=== PATIENT | male | born 1960 | race Caucasian/White ===

== ENCOUNTER 2016-12-08 18:32 | Emergency (ER) | payer OTHER ==
[~2016-12-08] VITALS: Ht 170.2 cm; Wt 73.0 kg
[2016-12-08] VITALS (7 sets, daily range): BP systolic 99–121; BP diastolic 56–79
[2016-12-08] MEDS ORDERED: LISI-556 PO (18:46)
[2016-12-08] MEDS ORDERED: PHEN15CA67 PO (18:46)
[2016-12-08] MEDS ORDERED: ATOR10TA66 PO (18:46)
[2016-12-08] MEDS ORDERED: NS IV 1000 ML 1,000 ML IV ONE (18:47)
[2016-12-08 18:56] LABS: BASOPHILS % (AUTO) 0 % (0-10); EOSINOPHILS % (AUTO) 0 % (0-10); LYMPHOCYTES # (AUTO) 0.8 X 10^3 (1.0-4.0); LYMPHOCYTES % (AUTO) 5 % (12-44); MEAN CORPUSCULAR HEMOGLOBIN 33 PG (25-34); MEAN CORPUSCULAR HGB CONC 35 G/DL (32-36); MEAN CORPUSCULAR VOLUME 95 FL (80-99); MEAN PLATELET VOLUME 8.6 FL (7.4-10.4); MONOCYTES # (AUTO) 2.9 X 10^3 (0.0-1.0); MONOCYTES % (AUTO) 19 % (0-12); NEUTROPHILS # (AUTO) 11.7 X 10^3 (1.8-7.8); NEUTROPHILS % (AUTO) 76 % (42-75); PLATELET COUNT 245 10^3/uL (130-400); RED BLOOD COUNT 4.42 10^6/uL (4.35-5.85); RED CELL DISTRIBUTION WIDTH 12.7 % (10.0-14.5); WHITE BLOOD COUNT 15.5 10^3/uL (4.3-11.0)
--- NOTE | 2016-12-08 19:00 | Diagnostic Imaging Report ---
Indication: Chest tightness for two days. Discussion: Single portable upright view of the chest was obtained, no comparison. No focal consolidation, pleural fluid or pneumothorax. Normal heart size. No osseous abnormality. Impression: Negative portable chest. Dictated by: Dictated on workstation # [id number]
--- NOTE | 2016-12-08 19:03 | ED Chest Pain ---
General Chief Complaint: Chest Pain Stated Complaint: CP Nursing Triage Note: Pt to ED room 8 via [facility] from [facility]. Pt reports he had been experiencing chest tightness for approx 2 days but woke up feeling better this morning. Pt reports he was walking through [place] airport this morning when he suddenly became diaphoretic and SOA and began experiencing CP. Pt denies SOA or CP at this time. Nursing Sepsis Screen: No Definite Risk Source: patient, EMS Exam Limitations: no limitations History of Present Illness Time seen by provider: 18:32 Initial Comments Patient is here from [place] where he lives. He does a lot of traveling for his job. This morning he noted that he had chest tightness while walking through the airport [place]. I did get a little better with rest but he's had some chest tightness and right arm tingling since. He also notes some upper chest pressure. Ultimately presented at [facility] urgent care for evaluation. They were concerned because he had elevated heart rate as well as the complaints of chest pain and sent him here. Patient denies nausea or vomiting. Did have sweating with his shortness of air during the initial episode. Patient did receive ASA 324 mg at outside facility. 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 Associated Symptoms: back pain diaphoresisNo nausea/vomiting, shortness of breath Allergies and Home Medications Allergies Coded Allergies: No Known Drug Allergies (Unverified , 12/08/16) Home Medications Atorvastatin Calcium 10 Mg Tablet Unknown Dose PO (Reported) Lisinopril 5 Mg Tablet Unknown Dose PO DAILY (Reported) Phentermine HCl 15 Mg Capsule Unknown Dose PO (Reported) Review of Systems Constitutional: see HPINo chills, diaphoresisNo fever EENTM: No Symptoms Reported Respiratory: See HPI SOA With Exertion Cardiovascular: Chest PainDenies Lightheadedness Genitourinary: No Symptoms Reported Musculoskeletal: no symptoms reported Skin: no symptoms reported Psychiatric/Neurological: No Symptoms Reported Endocrine: No Symptoms Reported Hematologic/Lymphatic: No Symptoms Reported All Other Systems Reviewed Negative Unless Noted: Yes Past Kqdsskx-Afcjsz-Vkpuhz Hx Patient Social History Alcohol Use: Regular Use Recreational Drug Use: No Type Used: Electronic/Vapor Recent Foreign Travel: No Contact w/Someone Who Travel: No Recent Infectious Disease Expo: No Recent Hopitalizations: No Seasonal Allergies Seasonal Allergies: No Surgeries HX Surgeries: Yes Surgeries: Appendectomy Respiratory Hx Respiratory Disorders: No Cardiovascular Hx Cardiac Disorders: No Neurological Hx Neurological Disorders: No Reproductive System Hx Reproductive Disorders: No Genitourinary Hx Genitourinary Disorders: No Gastrointestinal Hx Gastrointestinal Disorders: No Musculoskeletal Hx Musculoskeletal Disorders: No Endocrine Hx Endocrine Disorders: No HEENT HX ENT Disorders: No Cancer Hx Cancer: No Psychosocial Hx Psychiatric Problems: No Integumentary HX Skin/Integumentary Disorder: No Blood Transfusions Hx Blood Disorders: No Reviewed Nursing Assessment Reviewed/Agree w Nursing PMH: Yes Family Medical History Significant Family History: Cancer, CAD Over 55 Years Old Physical Exam Vital Signs Vital Sign - Last 12Hours Capillary Refill : Less Than 3 Seconds General Appearance: No Apparent Distress WD/WN HEENT: PERRL/EOMI Pharynx Normal Neck: Non Tender Supple Respiratory: Lungs Clear Normal Breath Sounds Cardiovascular: Regular Rate, Rhythm No Murmur Gastrointestinal: Non Tender Soft Extremity: Normal Inspection Normal Range of Motion Non Tender No Calf Tenderness Neurologic/Psychiatric: Alert Oriented x3 Skin: Normal Color Warm/Dry Focused Exam Lactic Acid Level Laboratory Tests Test 12/08/16 18:35 12/08/16 20:42 Alanine Aminotransferase (ALT/SGPT) 96U/L (0-55) H Albumin 4.5G/DL (3.2-4.5) Alkaline Phosphatase 82U/L (40-136) Amylase Level 33U/L (25-125) Anion Gap 14MMOL/L (5-14) Aspartate Amino Transf (AST/SGOT) 39U/L (5-34) H BUN/Creatinine Ratio 8 Blood Urea Nitrogen 6MG/DL (7-18) L Calcium Level 9.8MG/DL (8.5-10.1) Carbon Dioxide Level 24MMOL/L (21-32) Chloride Level 93MMOL/L (98-107) L Creatinine 0.79MG/DL (0.60-1.30) Estimat Glomerular Filtration Rate > 60 Glucose Level 114MG/DL (70-105) H Lipase 26U/L (8-78) Magnesium Level 2.2MG/DL (1.8-2.4) Myoglobin 36.5NG/ML (10.0-92.0) Potassium Level 3.9MMOL/L (3.6-5.0) Sodium Level 131MMOL/L (135-145) L Total Bilirubin 1.2MG/DL (0.1-1.0) H Total Protein 7.3G/DL (6.4-8.2) Troponin I < 0.30NG/ML (<0.30) < 0.30NG/ML (<0.30) Progress/Results/Core Measures Results/Orders Lab Results Laboratory Tests Test 12/08/16 18:35 12/08/16 20:42 Range/Units Activated Partial Thromboplast Time 30 24-35 SEC Alanine Aminotransferase (ALT/SGPT) 96 H 0-55 U/L Albumin 4.5 3.2-4.5 G/DL Alkaline Phosphatase 82 40-136 U/L Amylase Level 33 25-125 U/L Anion Gap 14 5-14 MMOL/L Aspartate Amino Transf (AST/SGOT) 39 H 5-34 U/L BUN/Creatinine Ratio 8 Band Neutrophils 1 % Basophils # (Auto) 0.0 0.0-0.1 10^3/uL Basophils % (Manual) 0 % Basophils (%) (Auto) 0 0-10 % Blood Morphology Comment NORMAL Blood Urea Nitrogen 6 L 7-18 MG/DL Calcium Level 9.8 8.5-10.1 MG/DL Carbon Dioxide Level 24 21-32 MMOL/L Chloride Level 93 L 98-107 MMOL/L Creatinine 0.79 0.60-1.30 MG/DL D-Dimer 0.60 H 0.00-0.49 UG/ML Eosinophils # (Auto) 0.0 0.0-0.3 10^3/uL Eosinophils % (Manual) 0 % Eosinophils (%) (Auto) 0 0-10 % Estimat Glomerular Filtration Rate > 60 Glucose Level 114 H 70-105 MG/DL Hematocrit 42 40-54 % Hemoglobin 14.6 13.3-17.7 G/DL INR Comment 1.1 0.8-1.4 Lipase 26 8-78 U/L Lymphocytes # (Auto) 0.8 L 1.0-4.0 X 10^3 Lymphocytes % (Manual) 10 % Lymphocytes (%) (Auto) 5 L 12-44 % Magnesium Level 2.2 1.8-2.4 MG/DL Mean Corpuscular Hemoglobin 33 25-34 PG Mean Corpuscular Hemoglobin Concent 35 32-36 G/DL Mean Corpuscular Volume 95 80-99 FL Mean Platelet Volume 8.6 7.4-10.4 FL Monocytes # (Auto) 2.9 H 0.0-1.0 X 10^3 Monocytes % (Manual) 20 % Monocytes (%) (Auto) 19 H 0-12 % Myoglobin 36.5 10.0-92.0 NG/ML Neutrophils # (Auto) 11.7 H 1.8-7.8 X 10^3 Neutrophils % (Manual) 69 % Neutrophils (%) (Auto) 76 H 42-75 % Platelet Count 245 130-400 10^3/uL Potassium Level 3.9 3.6-5.0 MMOL/L Prothrombin Time 13.4 12.2-14.7 SEC Red Blood Count 4.42 4.35-5.85 10^6/uL Red Cell Distribution Width 12.7 10.0-14.5 % Sodium Level 131 L 135-145 MMOL/L Total Bilirubin 1.2 H 0.1-1.0 MG/DL Total Protein 7.3 6.4-8.2 G/DL Troponin I < 0.30 < 0.30 <0.30 NG/ML White Blood Count 15.5 H 4.3-11.0 10^3/uL My Orders Orders-SHAWNEEMARGA ARORA MD Cbc With Automated Diff (12/08/16 18:47) Magnesium (12/08/16 18:47) Chest 1 View, Ap/Pa Only (12/08/16 18:47) Ekg Tracing (12/08/16 18:47) Cardiac Profile 1 (12/08/16 18:47) Comprehensive Metabolic Panel (12/08/16 18:47) Myoglobin Serum (12/08/16 18:47) Protime With Inr (12/08/16 18:47) Partial Thromboplastin Time (12/08/16 18:47) O2 (12/08/16 18:47) Monitor-Rhythm Ecg Trace Only (12/08/16 18:47) Lipid Panel (12/09/16 06:00) Saline Lock/Iv-Start (12/08/16 18:47) Lipase (12/08/16 18:47) Amylase (12/08/16 18:47) Fibrin Degradation Products (12/08/16 18:47) Ns Iv 1000 Ml (Sodium Chloride 0.9%) (12/08/16 18:47) Manual Differential (12/08/16 18:35) Ct Angio Chest W (12/08/16 19:46) Iohexol Injection (Omnipaque 350 Mg/Ml 1 (12/08/16 20:15) Ns (Ivpb) (Sodium Chloride 0.9% Ivpb Bag (12/08/16 20:15) Ekg Tracing (12/08/16 20:36) Troponin I (12/08/16 20:36) Levaquin 500mg Po (12/08/16 21:43) Medications Given in ED Current Medications Medications Dose Ordered Sig/Gabrielle Route Start Time Stop Time Status Last Admin Dose Admin Iohexol 150 ml ONCE ONCE IV 12/08/16 20:15 12/08/16 20:16 DC 12/08/16 20:05 125 ML Sodium Chloride 100 ml ONCE ONCE IV 12/08/16 20:15 12/08/16 20:16 DC 12/08/16 20:05 80 ML Sodium Chloride 1,000 ml @ 0 mls/hr Q0M ONCE IV 12/08/16 18:47 12/08/16 18:49 DC 12/08/16 18:55 999 MLS/HR Vital Signs/I&O Vital Sign - Last 12Hours 12/08/16 12/08/16 12/08/16 12/08/16 18:35 18:35 18:39 18:45 Temp 98.2 Pulse 118 105 Resp 20 20 B/P 130/92 117/75 Pulse Ox 98 98 O2 Delivery Nasal Cannula Nasal Cannula Nasal Cannula Nasal Cannula O2 Flow Rate 2 2 2 2 12/08/16 12/08/16 12/08/16 12/08/16 18:55 19:15 19:45 20:30 Pulse 104 100 100 Resp 18 18 18 B/P 102/79 113/56 121/78 Pulse Ox 100 100 99 99 O2 Delivery Room Air Room Air Room Air Room Air Blood Pressure Mean: 105 Progress Note : Progress Note Seen and evaluated. IV at outside facility. Labs, EKG and chest x-ray ordered. Normal saline 1 L bolus. Monitor patient. 1944: D-dimer elevated. CT angiogram chest ordered. Monitor patient. 2039: No acute findings of pulmonary embolism but there is question of groundglass opacity in the right upper lobe that could be infiltrate. We will recheck troponin and EKG. Patient is overall doing much better. He was instructed to stop phentermine. He has appointment with his doctor scheduled next Tuesday. If enzymes are negative and there is no EKG changes persisting, we will discharge home to have follow-up back in [place] and initiate antibiotic therapy for possible pneumonia. Patient was in agreement and is comfortable with that plan. 2134: I did discuss the case and findings with Dr. Baptiste. He would recommend admission and observation if patient is amiable. If patient is not then close follow-up as discussed would be appropriate. 2144: I have discussed all the findings and concerns with the patient as well as offered admission. Patient would like to avoid admission if possible. We discussed in depth the return precautions and the need for follow-up. Patient states that he will definitely follow up with his DrCheryle on Tuesday and would return for any concerns. He is staying at the [facility]. He has friends here with him who will also help keep an eye on him. Levaquin 500 mg by mouth given. We will continue this for one week for the question of pneumonia. Discharged home with return precautions. Patient verbalize understanding instructions and agreement with plan. He is currently pain-free. ECG Initial ECG Impression Date: Dec 08, 2016 Initial ECG Impression Time: 18:39 Initial ECG Rate: 111 Initial ECG Rhythm: S.Tach Comment Sinus tachycardia with normal axis. Appears to have some global ST elevation that is mild which may represent pericarditis. No evidence of ST elevation [place]. No previous available for comparison from here but is similar to EKG done earlier today at outside facility. Interpreted by me. EKG : EKG Time: 20:47 Rate: 103 Rhythm: S.Tach Comment Sinus tachycardia with continued question of global mild ST elevation consistent with pericarditis. Patient does have history of hypertension and is on phentermine currently. Unchanged from previous. No evidence of ST elevation [place]. Interpreted by me. Normal axis noted. Diagnostic Imaging Diagonstic Imaging: Xray Plain Films/CT/US/NM/MRI: chest Comments VIA [facility], [facility]. [place], [place] NAME: GINETTE BRENNER [facility] REC#: [id number] PT STATUS: REG ER : 1960 PHYSICIAN: MARGA RUANO MD ADMIT DATE: 12/08/16/ER Draft Date of Exam:12/08/16 CHEST 1 VIEW, AP/PA ONLY Indication: Chest tightness for two days. Discussion: Single portable upright view of the chest was obtained, no comparison. No focal consolidation, pleural fluid or pneumothorax. Normal heart size. No osseous abnormality. Impression: Negative portable chest. Dictated on workstation # [id number] Dict: 12/08/168 Trans: 12/08/161899 [facility] [id number] Interpreted by: BRITT LOPEZ MD Electronically signed by: Beck Imaging: CT Plain Films/CT/US/NM/MRI: chest Comments VIA [facility], [place] NAME: GINETTE BRENNER [facility] REC#: [id number] PT STATUS: REG ER : 1960 PHYSICIAN: MARGA RUANO MD ADMIT DATE: 12/08/16/ER Draft Date of Exam:12/08/16 CT ANGIO CHEST W Procedure: CT angiography of the chest with contrast. Technique: Multiple contiguous axial images were obtained through the chest after uneventful bolus administration of intravenous contrast. Reconstructed CTA MIP acquisitions were also performed. Indication: Chest tightness for two days. Comparison: None. Discussion: No pulmonary embolus is identified. The thoracic aorta is normal in caliber and configuration. The thoracic aorta is somewhat tortuous in its course, likely due to underlying long-standing arterial hypertension. No mediastinal, hilar or axillary adenopathy. Normal heart size. No pleural or pericardial fluid. Subsegmental atelectasis present within the bilateral lung bases. Early changes of emphysema are noted. Subtle focus of groundglass opacity within the base of the right upper lobe is nonspecific and could represent atelectasis or pneumonia. Antecedent granulomatous disease is noted, benign. The visualized upper abdomen is unremarkable. No osseous abnormality identified. Impression: 1. No pulmonary embolus identified. 2. Small subtle focus of groundglass opacity within the base of the right upper lobe is nonspecific and could be seen with atelectasis and/or early pneumonia. Dictated on workstation # [id number] Dict: 12/08/162011 Trans: 12/08/162016 E [id number] Interpreted by: BRITT LOPEZ MD Electronically signed by: Departure Impression Impression: Primary Impression: Chest pain Qualified Code: R07.9 - Chest pain, unspecified Additional Impression: Right upper lobe pneumonia Qualified Code: J18.1 - Lobar pneumonia, unspecified organism Disposition: ADMITTED INPATIENT Condition: Stable Departure-Patient Inst. Decision time for Depature: 21:48 Referrals: NO,LOCAL PHYSICIAN (PCP/Family) Primary Care Physician Patient Instructions: Chest Pain (DC), Community-Acquired Pneumonia, Adult (DC) , Pericarditis, Adult (DC) Add. Discharge Instructions: All discharge instructions reviewed with patient and/or family. Voiced understanding. Take medications as directed. Drink plenty of fluids. Avoid things such as alcohol or other things that may irritate your stomach. It is very important that he keep your follow-up with your doctor on Tuesday as scheduled. It is also very important that you return if you have any concerns such as chest pain , breathing problems, sweating, weakness, vomiting or any other concerns as needed. Scripts Levofloxacin 500 Mg [id number] Mg PO DAILY #6 TAB Ref 0 Prov:MARGA RUANO MD 12/08/16 MARGA RUANO MD Dec 08, 2016 19:02
[2016-12-08 19:08] LABS: INR 1.1 (0.8-1.4); PROTHROMBIN TIME PATIENT 13.4 SEC (12.2-14.7)
[2016-12-08 19:14] LABS: ALANINE AMINOTRANSFERASE 96 U/L (0-55); ALBUMIN 4.5 G/DL (3.2-4.5); AMYLASE 33 U/L (25-125); ANION GAP 14 MMOL/L (5-14); ASPARTATE AMINO TRANSFERASE 39 U/L (5-34); BILIRUBIN,TOTAL 1.2 MG/DL (0.1-1.0); BLOOD UREA NITROGEN 6 MG/DL (7-18); BUN/CREATININE RATIO 8; CALCIUM 9.8 MG/DL (8.5-10.1); CARBON DIOXIDE 24 MMOL/L (21-32); CHLORIDE 93 MMOL/L (98-107); CREATININE SERUM 0.79 MG/DL (0.60-1.30); GFR ESTIMATED > 60; GLUCOSE 114 MG/DL (70-105); LIPASE 26 U/L (8-78); MAGNESIUM 2.2 MG/DL (1.8-2.4); POTASSIUM 3.9 MMOL/L (3.6-5.0); SODIUM 131 MMOL/L (135-145); TOTAL PROTEIN 7.3 G/DL (6.4-8.2)
[2016-12-08 19:20] LABS: MYOGLOBIN SERUM 36.5 NG/ML (10.0-92.0)
[2016-12-08 19:28] LABS: BAND NEUTROPHILS 1 %; BASOPHILS % (MANUAL) 0 %; EOSINOPHILS % (MANUAL) 0 %; LYMPHOCYTES % (MANUAL) 10 %; NEUTROPHILS % (MANUAL) 69 %
[2016-12-08] MEDS ORDERED: NS 100 ML (IVPB) BAG IV ONE (20:15)
[2016-12-08] MEDS ORDERED: IOHEXOL 350 MG/ML 150 ML (OMNIPAQUE 350) VIAL IV ONE (20:15)
--- NOTE | 2016-12-08 20:18 | Diagnostic Imaging Report ---
Procedure: CT angiography of the chest with contrast. Technique: Multiple contiguous axial images were obtained through the chest after uneventful bolus administration of intravenous contrast. Reconstructed CTA MIP acquisitions were also performed. Indication: Chest tightness for two days. Comparison: None. Discussion: No pulmonary embolus is identified. The thoracic aorta is normal in caliber and configuration. The thoracic aorta is somewhat tortuous in its course, likely due to underlying long-standing arterial hypertension. No mediastinal, hilar or axillary adenopathy. Normal heart size. No pleural or pericardial fluid. Subsegmental atelectasis present within the bilateral lung bases. Early changes of emphysema are noted. Subtle focus of groundglass opacity within the base of the right upper lobe is nonspecific and could represent atelectasis or pneumonia. Antecedent granulomatous disease is noted, benign. The visualized upper abdomen is unremarkable. No osseous abnormality identified. Impression: 1. No pulmonary embolus identified. 2. Small subtle focus of groundglass opacity within the base of the right upper lobe is nonspecific and could be seen with atelectasis and/or early pneumonia. Dictated by: Dictated on workstation # [id number]
[2016-12-08] MEDS ORDERED: LEVOFLOXACIN 500 MG TAB (LEVAQUIN) PO STA (21:43)
[2016-12-08] MEDS ORDERED: LEVO500T80 PO (21:50)
== END 2016-12-08 22:03 | disposition home or self-care (01) ==
LOC: ER 18:34
DX: R07.9 Chest pain, unspecified (principal); J18.9 Pneumonia, unspecified organism; R00.0 Tachycardia, unspecified; I10 Essential (primary) hypertension; Z79.899 Other long term (current) drug therapy
CPT/HCPCS: 36415; 71010; 71275; 80053; 82150; 83690; 83735; 83874; 84484; 85007; 85027; 85379; 85610; 85730; 93005; 93041; 96360